=== PATIENT | male | born 1980 | race Caucasian/White ===

== ENCOUNTER 2022-05-30 17:22 | Emergency (ER) | payer MEDICAID ==
[~2022-05-30] VITALS: Ht 188 cm; Wt 91.0 kg
[2022-05-30] MEDS ORDERED: DILTIAZEM HCL 5MG/ML 5ML VIAL IV ONE (18:15)
[2022-05-30] MEDS ORDERED: SODIUM CHLORIDE 0.9% 1,000 ML IV ONE (18:15)
[2022-05-30 18:19] LABS: EOSINOPHILS % 1.7 % (0.0-5.0); HEMATOCRIT. 48.1 % (42.0-52.0); HEMOGLOBIN. 15.9 g/dL (14.0-18.0); LYMPHOCYTES % 21.8 % (20.0-50.0); MEAN CORPUSCULAR HEMOGLOBIN 29.6 pg (28.0-32.0); MEAN CORPUSCULAR VOLUME 89.4 fL (80.0-94.0); MEAN PLATELET VOLUME 8.4 fl (7.4-10.4); MONOCYTES % 8.4 % (2.0-8.0); NEUTROPHILS % 67.1 % (40.0-76.0); PLATELET 253 x1000/uL (130-400); RED BLOOD CELL COUNT 5.39 mill/uL (4.7-6.1); RED CELL DISTRIBUTION WIDTH 13.8 % (11.6-14.6)
[2022-05-30 18:29] LABS: CHLORIDE 111 mEq/L (98-107)
[2022-05-30 18:39] LABS: ETHANOL BLOOD < 10 mg/dL
[2022-05-30 19:12] LABS: *AMPHETAMINES SCREEN URINE NEGATIVE (NEGATIVE); *BARBITURATES SCREEN URINE NEGATIVE (NEGATIVE); *BENZODIAZEPINES SCREEN URINE NEGATIVE (NEGATIVE); *COCAINE SCREEN URINE NEGATIVE (NEGATIVE); CANNABINOID URINE SCREEN PRESUMTIVE POSITIVE (NEGATIVE); METHADONE URINE SCREEN NEGATIVE (NEGATIVE); OPIATES URINE SCREEN NEGATIVE (NEGATIVE); PHENCYCLIDINE URINE SCREEN NEGATIVE (NEGATIVE)
[2022-05-30] MEDS ORDERED: ASPI-1497 MT (19:19)
[2022-05-30] MEDS ORDERED: DILT30TA38 MT (19:19)
[2022-05-30] MEDS ORDERED: ASPIRIN 325MG EC TABLET PO ONE (19:30)
[2022-05-30] MEDS ORDERED: DILTIAZEM HCL 60MG TABLET PO ONE (19:30)
[2022-05-30 21:28] VITALS: BP 113/70
== END 2022-05-30 21:29 | disposition home or self-care (01) ==
LOC: ER 17:43
DX: I48.20 Chronic atrial fibrillation, unspecified (principal); R00.2 Palpitations; I44.4 Left anterior fascicular block; Z79.01 Long term (current) use of anticoagulants
CPT/HCPCS: 36415; 71045; 80053; 80305; 80320; 83690; 83880; 84484; 85025; 93005; 96374; 99285; J3490; J7030; G0480